=== PATIENT | female | born 1995 | race Caucasian/White ===

== ENCOUNTER 2017-11-30 19:01 | Emergency (ER) | payer MEDICAID, SELFPAY ==
[2017-11-30 19:03] VITALS: BP 123/73; PULSE 87; PULSE 93; RESP 18; TEMP 37.1; O2SAT 100; BMI 27.9
[2017-11-30 20:14] LABS: Color, Urine Yellow (Yellow); Glucose, Dipstick Normal (Normal); Ketone-Dipstick Negative (Negative); Leukocyte Esterase-Dipstick 25 /ul (Negative); Nitrite-Dipstick Negative (Negative); Occult Blood-Urine 10 /ul (Negative); Protein-Dipstick Negative (Negative); Urine Bilirubin Dipstick Negative (Negative); Urine Clarity Clear (Clear); Urine Urobilinogen Normal (Normal)
[2017-11-30 20:21] LABS: Squamous Epithelial Cells - UA 0-5 SEEN /hpf (5-10)
[2017-11-30 20:22] LABS: Mucous, Urine RARE /hpf (<or=2+)
[2017-11-30 20:23] LABS: White Blood Cells 0-5 SEEN /hpf (0-5)
[2017-11-30 20:24] LABS: Bacteria RARE /hpf (None Seen)
[2017-11-30 20:25] LABS: Red Blood Cells-Urine 0-5 SEEN /hpf (0-5)
--- NOTE | 2017-11-30 20:44 | ED.DCSUM_ITS ---
- ER Visit Summary Date of Service: 11/30/17 Chief Complaint: [] Burning abdominal pain for a few days History of Present Illness: The patient is a 22 F [] patient's had burning abdominal pain for a few days she reports a week ago she was taking quite a bit of ibuprofen for headaches close headaches of all resolved her health is now normal but she complains of burning abdominal discomfort she is able to eat and drink her bowel bladder to have been normal she denies she fact ate today without difficulty she has no history of hepatobiliary dysfunction or acid disease she is otherwise very healthy on no meds Physical Examination: [] She looks well her vital signs are within normal range head neck chest abdomen unremarkable times Apsley soft nontender rebound guarding or megaly is subjective discomfort of burning pain that is diffuse there is no right lower quadrant or any type of focal abdominal discomfort she is feeling better her back is normal upper lower extremities are normal clinically she looks well Test Results: [] Emergency Department Course and Treatment: [] Is eating and drinking well this is a burning discomfort that she had since the ibuprofen clinically she looks well Lab studies are generally unremarkable her liver enzymes are minimally elevated to AST about 60 she has no known history of the above clinically she looks well We did send off hepatitis serum screening labs I have asked her stay in a bland diet avoid nonsteroidals and follow with her doctors for further management she agrees to the above again she wants to go home Treatment Plan: [] Disposition: [] Home stable Impression: [] Abdominal pain after using ibuprofen, slight elevation of liver function tests This note was generated with [employer] dictation software. It may contain incorrect words, spelling, and punctuation that were not noted in review of the chart prior to signing ED Disposition - Plan for ED Patient: Chief Complaint: Abd Pain Instructions: ED Abdominal Pain Unkn Cause Prescriptions: Omeprazole [Prilosec] 20 mg PO DAILY #30 cap Referrals: Jayy Preston MD [Primary Care Provider] -
--- NOTE | 2017-11-30 20:46 | ED.DEP ---
ED Disposition - Plan for ED Patient: Chief Complaint: Abd Pain Instructions: ED Abdominal Pain Unkn Cause Prescriptions: Omeprazole [Prilosec] 20 mg PO DAILY #30 cap Referrals: Jayy Preston MD [Primary Care Provider] -
[2017-11-30 21:05] VITALS: RESP 18
[2017-11-30 21:49] LABS: Absolute Lymphocyte Count 3.97 X10^3/ul (0.83-4.51); Absolute Neutrophil Count 1.6 X10^3/uL (2.0-7.7); Basophil# 0.16 X10^3/uL; Basophil% 2.4 % (0-1); Eosinophil# 0.29 X10^3/uL; Eosinophils% 4.4 % (0-5); Hematocrit 39.5 % (37-47); Hemoglobin 12.7 g/dl (12.0-15.0); Lymphocyte # 3.97 X10^3/ul (4.0); Lymphocyte % 59.6 % (19-41); Mean Corp Hgb Conc 32.2 g/gl (32-36); Mean Corpuscular Hgb 29.6 pg (27.0-32.0); Mean Corpuscular Volume 92.1 fL (81-99); Mean Platelet Vol. 9.3 fl (6.2-12.0); Monocyte# 0.66 X10^3/uL; Monocyte% 9.9 % (0-10); Neutrophil # 1.56 X10^3/uL (2.7-7.7); Neutrophil % 23.4 % (47-70); Platelet Count 242 K/mm3 (150-450); RBC Distribution Width SD 42.7 fl (35.1-43.9); Red Blood Count 4.29 M/mm3 (4.2-5.4); White Blood Count 6.7 K/mm3 (4.4-11.0)
[2017-11-30 21:50] LABS: Differential Indicated SCAN CRITERIA MET; POSITIVE COUNT NO; POSITIVE DIFFERENTIAL NO; POSITIVE MORPHOLOGY YES
[2017-11-30 21:58] LABS: AST(SGOT) 60 U/L (15-37); Alanine Aminotransfer ALT/SGPT 86 U/L (13-56); Alkaline Phosphatase 89 U/L (45-117); Anion Gap 9 (5-15); BUN 13 mg/dL (7-18); BUN/Creat Ratio 19.8 RATIO (10-20); Bilirubin, Direct 0.09 mg/dL (0.00-0.30); Calcium,Total 8.5 mg/dL (8.5-10.1); Chloride 110 mmol/L (98-107); Creatinine, Serum 0.66 mg/dL (0.55-1.02); EST Glomerular Filtration Rate 118 mL/min (>60); Est Glom Filt Rate - Afr Amer 142 mL/min (>60); Estimated Creatinine Clearance 109.66 ml/min; Globulin 4.3 g/dL (2.2-4.2); Glucose 83 mg/dL (74-106); Lipase 277 U/L (73-393); Potassium 3.5 mmol/L (3.5-5.1); Protein, Total 8.3 g/dL (6.4-8.2); Sodium Level 141 mmol/L (136-145)
[2017-11-30 22:44] VITALS: BP 125/90; PULSE 98; RESP 16; O2SAT 99
--- NOTE | 2017-11-30 22:45 | ED.RN ---
REVIEWED D/C INSTRUCTIONS, FOLLOW UP CARE, AND S/S THAT WOULD WARRANT A RETURN TO THE ED WITH PT. PT VERBALIZED AN UNDERSTANDING AND DENIES FURTHER QUESTIONS FOR THIS RN. PT SKIN P/W/D, RESP EVEN AND UNLABORED, PT A&O X 3, NO DISTRESS NOTED.
[2017-12-02 06:08] LABS: HEPATITIS B SURFACE AG Negative (Negative); Hepatitis A IgM Antibody Negative (Negative); Hepatitis B Core AB IgM Negative (Negative)
[2017-12-02 13:38] LABS: Hep C Antibodies <0.1 s/co ratio (0.0-0.9)
== END 2017-11-30 22:50 | disposition home or self-care (01) ==
LOC: ED 20:36
PROVIDERS: Emergency Provider Emergency Medicine; Family Provider Family Medicine; PCP Family Medicine
DX: R10.84 Generalized abdominal pain (principal); R94.5 Abnormal results of liver function studies; Z79.899 Other long term (current) drug therapy
CPT/HCPCS: 36415; 80048; 80074; 80076; 81001; 83690; 85025; 99282; J7030; A4216; J2405

== ENCOUNTER 2018-03-14 08:05 | Emergency (ER) | payer MEDICAID, SELFPAY ==
[2018-03-14 08:06] VITALS: BP 118/70; PULSE 87; RESP 16; TEMP 36.4; O2SAT 100; BMI 28.3
--- NOTE | 2018-03-14 08:26 | ED.DCSUM_ITS ---
- ER Visit Summary Date of Service: 03/14/18 Chief Complaint: [Headache] History of Present Illness: The patient is a 22 F [presents the emergency department with a headache that started yesterday. Patient states that she woke up with it. Patient has been taking ibuprofen but she knows at times it can be hard on her stomach. Patient states that she had some mild discomfort to an lymph node on the right side anterior neck 2 days ago but that has since resolved. Patient denies sore throat. Patient denies neck pain currently. She describes her headache as diffuse and throbbing. Patient had some mild nausea yesterday but no vomiting. She denies any photophobia. Patient states several months ago she was having headaches for a couple weeks. Patient also states that she had low-grade temperature yesterday while at work it was 100.1 with a tympanic thermometer. Today at work her temperature was 99.3 and they sent her home. 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 Patient denies any urinary symptoms. No family history of brain tumors or aneurysms. Her headache is currently a 4 out of 10 and mild as she states she took ibuprofen 600 mg at 7 AM.] Physical Examination: [HEENT-PERRLA, EOMI. Cranial nerves II through XII grossly intact. TMs clear. Mucous membranes moist. No adenopathy. Cardiovascular-regular rate and rhythm without murmur or ectopy Lungs-clear to auscultation, chest wall stable without crepitus or subcu emphysema Abdomen-normoactive bowel sounds, soft, nontender, no rebound or rigidity, no peritoneal signs. Neuro [id number] and heel magaña testing within normal limits, negative Romberg, negative pronator drift, fundi benign, negative Brudzinski sign, negative Kernig's Extremities-intact ?4, normal range of motion, normal pulses, atraumatic] Test Results: [None indicated] Emergency Department Course and Treatment: [Patient refused treatment of her headache here. Also discussed about checking a urinalysis given the low-grade temperature however patient does not feel that she is having any urinary issues and does not want to proceed with this.] Patient just believe she is getting sick with possibly an upper respiratory infection. Treatment Plan: [Patient advised use Tylenol for discomfort and fever control. Patient to follow-up with her primary care physician 3-5 days. Patient to return if worsening headache, difficulty with balance or speech, high fevers, or condition should worsen in any way.] Disposition: [Discharged home in stable condition] Impression: [Headache-suspect viral syndrome] This note was generated with [employer] dictation software. It may contain incorrect words, spelling, and punctuation that were not noted in review of the chart prior to signing ED Disposition - Plan for ED Patient: Chief Complaint: Headache Referrals: Jayy Preston MD [Primary Care Provider] -
--- NOTE | 2018-03-14 08:26 | ED.DEP ---
ED Disposition - Plan for ED Patient: Chief Complaint: Headache Instructions: ED Cephalgia Unspecified Referrals: Jayy Preston MD [Primary Care Provider] - 3-5 Days
== END 2018-03-14 08:31 | disposition home or self-care (01) ==
LOC: ED 08:26
PROVIDERS: Emergency Provider Emergency Medicine
DX: R51 Headache (principal); Z79.899 Other long term (current) drug therapy
CPT/HCPCS: 99282

== ENCOUNTER 2020-06-10 07:50 | Emergency (ER) | payer MEDICAID, SELFPAY ==
[2020-06-10 07:51] VITALS: BP 127/83; PULSE 82; RESP 16; TEMP 35.8; O2SAT 100; BMI 29.5
--- NOTE | 2020-06-10 07:57 | ED.DCSUM_ITS ---
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 She presents because of chest discomfort that was first noted on Monday. She states the pain lasts up to 15 minutes. There is no precipitating, alleviating or exacerbating factors. She does report shortness of breath that rest and dyspnea on exertion. She has no history of VTE. She denies leg pain, swelling discoloration. Is a device for prevention, Mirena. There is no family history of VTE to her knowledge. She denies any constitutional symptoms of fever, chills night sweats. She denies any upper respiratory symptoms. She denies GI symptoms. Prior similar symptoms: No Recent Illness/Hospitalization: No - Past Medical History (1) No significant past medical history Status: Acute Past Medical History - Allergies and Home Meds Allergies/Adverse Reactions: Allergies No Known Allergies Allergy (Verified 06/10/20 07:51) Primary Care Physician: Su Flores DO [Primary Care Provider] - Prior records reviewed: Yes Past Medical History: None Lives: Alone Smoking Status: Never smoker Alcohol: None Drugs: None Review of Systems General: Denies: Chills, Fever, Sweats Eyes: Denies: Visual changes - bilaterally, Blurred Vision - bilaterally ENT: Denies: Rhinorrhea, Sore throat Cardiovascular: Reports: Chest pain. Denies: Palpitations, Heart racing, -, - Respiratory: Reports: Dyspnea, Dyspnea on exertion. Denies: Cough, Sputum, Orthopnea, Paroxysmal nocturnal dyspnea, -, - Gastrointestinal: Denies: Abdominal pain, Nausea, Vomiting, Diarrhea, Melena, Hematochezia Genitourinary: Denies: Dysuria, Hematuria, Frequency Musculoskeletal: Denies: Myalgias, Arthralgias, Neck pain, Back pain, Swelling, Extremity Pain Skin: Denies: Rash, Wounds Neurological: Denies: Headache, Weakness, Parasthesia, Numbness Hematologic: Denies: Easy bruising, Easy bleeding Allergy: Denies: Uticaria Physical Exam Vital Signs/Narrative: Vital Signs Temp Pulse Resp BP Pulse Ox 06/10/20 07:51 96.5 F L 82 16 127/83 H 100 Inital Vital Signs reviewed: Yes General: Well nourished, Well developed, No Acute Distress Head: Normocephalic, Atraumatic Eyes: Perrl, EOMI. Negative for: Pale conjunctiva, Scleral icterus ENT: Moist mucous membranes, No rhinorrhea Neck: Supple, Nontender, No lymphadenopathy, No JVD Cardiovascular: Regular rate, Regular rhythm, No murmurs, Normal S1, Normal S2 Respiratory: No distress, CTA bilaterally, Chest nontender Abdomen: Soft, Nontender, Nondistended, Normal bowel sounds Rectal: Deferred Back: Nontender, Normal Inspection Extremities: Nontender, No edema, - - There is no asymmetry, swelling, discoloration, leg vein distention, palpable cords or tenderness along the distribution of the deep venous system. Skin: Normal color, No rash Neurological: Alert, Oriented x3, Cranial nerves II-XII grossly intact, Normal Strength, Normal Sensation Psychological: Normal affect, Normal Mood Diagnostic/Tx/Re-eval Chest X-Ray - ED: 2 View, Read by ED Physician, Normal, Heart, Mediastinum, Bony Structures, No Acute Disease, - - 2 view chest x-ray was interpreted by me at 0841. The x-ray is normal. Impressions Chest X-Ray 06/10/20 08:35 IMPRESSION: Normal x-ray examination of the chest. Electronically Signed: Rajan Ford MD at 8:50 EDT Tel , Service support , 06/10/20 08:35 Chest PA and Lateral [RAD] Stat Laboratory Results 06/10/20 06/10/20 06/10/20 08:15 08:15 08:15 WBC 7.7 RBC 4.85 Hgb 13.8 Hct 44.7 MCV 92.2 MCH 28.5 MCHC 30.9 L RDW Std Deviation 40.9 RDW Coeff of Daniela 11.9 Plt Count 330 MPV 9.7 Immature Gran % (Auto) 0.400 Neut % (Auto) 66.0 Lymph % (Auto) 24.1 Amador % (Auto) 7.0 Eos % (Auto) 1.7 Baso % (Auto) 0.8 Absolute Neuts (auto) 5.1 Absolute Lymphs (auto) 1.85 Nucleated RBC % 0 D-Dimer Quant (PE/DVT) <= 0.27 Sodium 139 Potassium 3.8 Chloride 108 H Carbon Dioxide 26.0 Anion Gap 5 BUN 13 Creatinine 0.68 Estim Creat Clear Calc 108.26 Est GFR (MDRD) Af Amer 135 Est GFR (MDRD) Non-Af 112 BUN/Creatinine Ratio 19.2 Glucose 95 Calcium 8.9 CBC and differential are unremarkable. D-dimer is normal. Basic metabolic panel is normal. Patient was informed the cause of her chest pain is unknown. Treatment is symptomatic. - EKG Initial EKG Interpretation: Sinus Rhythm - Normal sinus rhythm with a ventricular rate of 86. GA interval is 112 ms. QRS duration 86 ms. QT interval 338 ms. Ullin is normal. There is nonspecific T wave abnormality noted. Prior: No Prior - Medical Decision Making Differential includes cardiac chest pain, noncardiac chest pain E GI, pulmonary embolus, respiratory infection. Since patient is not PERC negative a D-dimer was obtained. Chest x-ray was obtained to evaluate for pulmonary etiology. EKG to rule out ischemia or evidence of inflammation i.e. pericarditis/myocarditis. Appropriate blood work was obtained. ED Disposition - Plan for ED Patient: Disposition: Home or Assisted Living Diagnosis: Chest pain of unknown etiology, Dyspnea Instructions: ED Chest Pain NonCardiac Referrals: Su Flores DO [Primary Care Provider] - 3-5 Days if not improving Additional Instructions: Take either 4 Advil tablets every 8 hours or 2 Aleve tablets every 12 hours for the next 3 to 5 days.
--- NOTE | 2020-06-10 07:57 | EKG12_ITS ---
Test Reason : CP Blood Pressure : / mmHG Vent. Rate : 086 BPM Atrial Rate : 086 BPM P-R Int : 112 ms QRS Dur : 086 ms QT Int : 338 ms P-R-T Axes : 046 -04 023 degrees QTc Int : 404 ms Normal sinus rhythm Nonspecific T wave abnormality Abnormal ECG Confirmed by ANEESH FREITAS, JUAN DAVID ([id number]), newspaper managing editor MEY FARAH ([id number]) on 06/11/2020 9:18:46 AM Referred By: LIANNA Confirmed By:JUAN DAVID MELENDREZ MD
--- NOTE | 2020-06-10 08:35 | RAD_ITS ---
STUDY: X-RAY CHEST REASON FOR EXAM: Female, 25 years old. chest pain x 3 days, SOB TECHNIQUE: PA and lateral views of the chest. COMPARISON: None. FINDINGS: The lungs are clear and expanded. There is no demonstrated pleural abnormality. Normal size heart. Normal mediastinum and duglas. Normal visualized pulmonary arteries. Normal visualized aortic arch and descending thoracic aorta. Normal visualized thoracic spine. Normal visualized ribs, clavicles, and shoulders. There is no demonstrated abnormality of the visualized soft tissue structures of the upper abdomen. RAD/Chest PA and Lateral IMPRESSION: Normal x-ray examination of the chest. Electronically Signed: Rajan Ford MD at 8:50 EDT Tel , Service support ,
[2020-06-10 08:37] LABS: Absolute Lymphocyte Count 1.85 X10^3/uL (0.83-4.51); Absolute Neutrophil Count 5.1 X10^3/uL (2.0-7.7); Basophil# 0.06 X10^3/uL; Basophil% 0.8 % (0-1); Eosinophil# 0.13 X10^3/uL; Eosinophils% 1.7 % (0-5); Hematocrit 44.7 % (37-47); Hemoglobin 13.8 g/dL (12.0-15.0); Lymphocyte # 1.85 X10^3/ul (4.0); Lymphocyte % 24.1 % (19-41); Mean Corp Hgb Conc 30.9 g/dL (32-36); Mean Corpuscular Hgb 28.5 pg (27.0-32.0); Mean Corpuscular Volume 92.2 fL (81-99); Mean Platelet Vol. 9.7 fl (6.2-12.0); Monocyte# 0.54 X10^3/uL; NRBC Flagged by Analyzer 0 % (0-5); Neutrophil # 5.07 X10^3/uL (2.7-7.7); Platelet Count 330 K/mm3 (150-450); RBC Distribution Width CV 11.9 % (11.6-14.6); RBC Distribution Width SD 40.9 fl (35.1-43.9); Red Blood Count 4.85 M/mm3 (4.2-5.4); White Blood Count 7.7 K/mm3 (4.4-11.0)
[2020-06-10 08:48] LABS: Anion Gap 5 (5-15); BUN 13 mg/dL (7-18); BUN/Creat Ratio 19.2 RATIO (10-20); Calcium,Total 8.9 mg/dL (8.5-10.1); Chloride 108 mmol/L (98-107); Creatinine, Serum 0.68 mg/dL (0.55-1.02); EST Glomerular Filtration Rate 112 mL/min (>60); Est Glom Filt Rate - Afr Amer 135 mL/min (>60); Estimated Creatinine Clearance 108.26 ml/min; Glucose 95 mg/dL (74-106); Potassium 3.8 mmol/L (3.5-5.1); Sodium Level 139 mmol/L (136-145)
[2020-06-10 08:49] LABS: D-Dimer Quantitative (DVT/PE) <= 0.27 FEU/ug/m (0.27-0.49)
== END 2020-06-10 09:06 | disposition home or self-care (01) ==
PROVIDERS: Emergency Provider Emergency Medicine
DX: R07.9 Chest pain, unspecified (principal); R06.00 Dyspnea, unspecified
CPT/HCPCS: 71046; 80048; 85025; 85379; 93005; 99283

== ENCOUNTER 2021-02-26 12:38 | Emergency (ER) | payer MEDICAID, SELFPAY ==
[2021-02-26 12:39] VITALS: BP 136/86; PULSE 110; RESP 18; TEMP 36.6; O2SAT 94; BMI 30.1
--- NOTE | 2021-02-26 12:52 | EDS_ITS ---
HPI History of Present Illness Chief Complaint: General Illness Informant: patient Narrative Narrative: 25-year-old female states that yesterday she developed body aches headache rhinorrhea with green discharge, sore throat and cough. States that she feels warm but has not been running a temperature. She is otherwise been a very healthy individual. 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 Patient has been on amoxicillin for the past 2 days due to an infected tooth for which she is awaiting a root canal. PFSH PFSH Home Medications amoxicillin 500 mg PO Q8 02/26/21 [History Last Taken Unknown] Allergy/AdvReac Type Severity Reaction Status Date / Time No Known Allergies Allergy Verified 02/26/21 12:42 Social History (Updated 02/26/21 @ 12:[address] Jose Gutierrez, DO) Smoking Status: Never smoker substance use type: does not use ROS ROS ED Constitutional Constitutional ED: Denies chills or weight loss Eyes Eyes: Denies change in vision or diplopia ENT ENT ED: Reports rhinorrhea and sore throat; Denies ear pain Cardiovascular Cardiovascular: Denies chest pain, orthopnea, palpitations or racing heartbeat Respiratory/Chest Respiratory/Chest: Reports cough; Denies dyspnea or orthopnea Gastrointestinal Gastrointestinal: Denies abdominal pain, diarrhea, nausea or vomiting Genitourinary Genitourinary ED: Denies dysuria, hematuria or urinary frequency Musculoskeletal Musculoskeletal: Reports myalgias; Denies arthralgias Integumentary Denies abscess or rash Neurologic Neurologic: Reports headache(s); Denies weakness Psychiatric Psychiatric: Denies anxiety, depression, suicidal ideation or suicidal thoughts Endocrine Endocrinology: Denies polydipsia, polyphagia or polyuria Allergic/Immunologic Allergic/Immunologic ED: Denies mouth swelling, tongue swelling or urticaria EXAM Physical Exam Const Vital Signs: 02/26/21 12:39 02/26/21 13:18 Temperature 98 F Temperature Source Temporal Pulse Rate 110 H 90 Respiratory Rate 18 Respiratory Effort Normal Non-Labored Respiratory Pattern Normal Blood Pressure 136/86 H Blood Pressure Mean 102 Pulse Ox 94 99 Oxygen Delivery Method Room Air Room Air Positive well nourished and well developed General Appearance ED: well developed HEENT Reports normocephalic, head/scalp atraumatic and moist mucous membranes HEENT Narrative: Oropharynx does not show any erythema or tonsillar swelling. Patient has turbinate edema and rhinorrhea. Eyes PERRL and EOMs intact bilaterally Neck no lymphadenopathy, supple and no JVD Resp normal respiratory effort and clear to auscultation bilaterally Cardio regular rate, regular rhythm and no murmurs GI normal to inspection, nondistended, normoactive bowel sounds and non-tender Palpation: soft Back/Spine no CVA tenderness and normal ROM Extremity normal to inspection General Extremety ED: Negative for edema General Extremity: Negative for edema Neuro oriented x3 and CN's II-XII intact bilaterally Sensorium / Orientation: alert Motor Exam: strength 5/5 throughout Psych mental status grossly normal Mood & Affect: Negative for depressed or tearful Skin no rashes or lesions noted and no wounds MDM MDM MDM Narrative Medical decision making narrative: My interpretation of the chest x-ray is no acute process. Influenza swab was obtained and negative. At this point patient appears to have a viral URI. Would recommend supportive care return if worsening or concerns Radiography Diagnostic Testing: Radiology Impression Chest X-Ray 02/26/21 12:54 IMPRESSION: Normal x-ray examination of the chest. Electronically Signed: Emiliano Baird MD at 13:05 EDT , Service support , Discharge Plan Triage Chief Complaint: General Illness ED Provider: Jose Gutierrez Dx/Rx/DC Orders Clinical Impression: URI (upper respiratory infection) Instructions: ED URI, Viral, No Abx (Adult) Prescriptions: No Action amoxicillin 500 mg capsule 500 mg PO Q8 RF: 0 Primary Care Provider: Su Flores Referrals: Su Flores DO [Primary Care Provider] - As Needed Disposition Disposition: Home, Self Care
--- NOTE | 2021-02-26 12:54 | RAD_ITS ---
STUDY: X-RAY CHEST REASON FOR EXAM: Female, 25 years old. Cough and chest congestion for a couple of days. TECHNIQUE: Single AP portable view of the chest. COMPARISON: Comparison is made with prior study 06/10/2020. FINDINGS: The lungs are clear and expanded. There is no demonstrated pleural abnormality. Normal size heart. Normal mediastinum and duglas. Normal visualized pulmonary arteries. Normal visualized aortic arch and descending thoracic aorta. Normal visualized thoracic spine. Normal visualized ribs, clavicles, and shoulders. There is no demonstrated abnormality of the visualized soft tissue structures of the upper abdomen. RAD/Chest 1 View (Portable) IMPRESSION: Normal x-ray examination of the chest. Electronically Signed: Emiliano Baird MD at 13:05 EDT , Service support ,
[2021-02-26 13:18] VITALS: PULSE 90; O2SAT 99
== END 2021-02-26 13:48 | disposition home or self-care (01) ==
PROVIDERS: Emergency Provider Emergency Medicine
DX: J06.9 Acute upper respiratory infection, unspecified (principal)
CPT/HCPCS: 71045; 87804; 99282

== ENCOUNTER → 2021-06-14 | Outpatient (CLI) | payer MEDICAID, SELFPAY | END | disposition home or self-care (01) | LOC: LABSPEC 16:25 | PROVIDERS: Visit Provider Family Medicine | DX: Z03.818 Encounter for observation for suspected exposure to other biological agents ruled out (principal) | CPT/HCPCS: 87635; U0005; U0003 ==

== ENCOUNTER 2021-09-23 18:06 | Emergency (ER) | payer MEDICAID, SELFPAY ==
[2021-09-23 18:07] VITALS: BP 137/93; PULSE 85; RESP 16; TEMP 35.6; O2SAT 100; BMI 29.2
[2021-09-23 18:10] VITALS: BP 137/93; PULSE 87; RESP 16; TEMP 35.6; O2SAT 100
--- NOTE | 2021-09-23 18:32 | EX.ED.UPPERE ---
HPI History of Present Illness Chief Complaint: Upper Extremity Injury Narrative Narrative: 26-year-old female presenting with right arm pain. She states that some mostly on her right forearm but she does explain that she has some aching to the whole upper arm. 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 She is not sure if she actually strained it. She states that she put icy hot all over her arm and now her arm case. She took Tylenol prior to arrival and she states this did help the pain. Patient denies any difficulty moving her upper extremity. She denies any trauma to the extremity. She has no bony tenderness. She has no numbness or tingling PFSH PFSH Medical History no medical history Home Medications ibuprofen 600 mg PO Q6H PRN PRN #20 tab 09/23/21 [Rx Last Taken Unknown] Allergy/AdvReac Type Severity Reaction Status Date / Time No Known Allergies Allergy Verified 02/26/21 12:42 Social History Smoking Status: Never smoker substance use type: does not use ROS ROS ED Constitutional Constitutional ED: Denies chills, fever(s) or sweats Eyes Eyes: Denies blurry vision ENT ENT ED: Denies rhinorrhea or sore throat Cardiovascular Cardiovascular: Denies chest pain or palpitations Respiratory/Chest Respiratory/Chest: Denies cough or dyspnea Gastrointestinal Gastrointestinal: Denies abdominal pain or nausea Genitourinary Genitourinary ED: Denies dysuria or hematuria Musculoskeletal Musculoskeletal: Reports other Details: Right arm pain Integumentary Denies Abrasions or rash Neurologic Neurologic: Denies headache(s) EXAM Physical Exam Const Vital Signs: 09/23/21 18:07 09/23/21 18:10 Temperature 96.0 F L 96.0 F L Temperature Source Temporal Temporal Pulse Rate 85 87 Respiratory Rate 16 16 Blood Pressure 137/93 H 137/93 H Blood Pressure Mean 107 107 Pulse Ox 100 100 Oxygen Delivery Method Room Air Room Air Positive well nourished General Appearance ED: NAD HEENT Reports moist mucous membranes normocephalic Eyes PERRL and EOMs intact bilaterally Resp normal respiratory effort and clear to auscultation bilaterally Cardio regular rate and regular rhythm Extremity normal to inspection and full ROM Extremity Narrative: No abnormal findings in the right upper extremity. Patient has full range of motion of the right shoulder, right elbow, right wrist. She is neurovascular intact throughout. Strength 5/5. General Extremety ED: Negative for edema General Extremity: Negative for edema Neuro oriented x3, CN's II-XII intact bilaterally, moves all extremities, no focal motor deficits and no sensory deficits noted Sensorium / Orientation: alert Psych mental status grossly normal Skin Lesions: no lesions Rashes: no rashes MDM MDM MDM Narrative Medical decision making narrative: Patient presenting with right arm pain. Her physical exam is normal. She has normal strength and sensation throughout. Motor strength is 5/5 throughout. Patient does report her arm feels like it is burning after putting icy hot on this. I do think this is likely source of her burning sensation. As far his arm she might possibly have a musculoskeletal strain, however she has no bony tenderness and I do not believe she needs any imaging. I will give her 600 mg ibuprofen p.o. every 6 hours for pain. She is discharged in stable addition. Impression: 1. Right arm pain Discharge Plan Triage Chief Complaint: Upper Extremity Injury ED Provider: Yuriy Mahan Dx/Rx/DC Orders Instructions: ED Muscle Strain, Extremity Prescriptions: New ibuprofen 600 mg tablet 600 mg PO Q6H PRN PRN (Reason: pain) Qty: 20 RF: 0 Primary Care Provider: Su Flores Referrals: Su Flores DO [Primary Care Provider] - Disposition Disposition: Home, Self Care
== END 2021-09-23 18:40 | disposition home or self-care (01) ==
LOC: ED 18:31
PROVIDERS: Emergency Provider Student in an Organized Health Care Education/Training Program; Visit Provider Student in an Organized Health Care Education/Training Program
DX: M79.601 Pain in right arm (principal)
CPT/HCPCS: 99282

== ENCOUNTER 2022-04-26 22:41 | Emergency (ER) | payer OTHER, MEDICAID, SELFPAY ==
[2022-04-26 22:42] VITALS: BP 133/79; PULSE 93; RESP 16; TEMP 36.5; O2SAT 100; BMI 28.1
--- NOTE | 2022-04-26 22:59 | ED.VIS.BACK ---
HPI History of Present Illness Chief Complaint: Back Informant: patient Onset/Context/Timing Onset: Today Injury: lifting Current Severity: Mild Maximum Severity: Moderate Narrative Narrative: Patient presents secondary to back pain. 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 She points to the area just above her bra line. She states she does have increased pain when she tries to take a deep breath. She did take ibuprofen 2 hours ago. PFSH PFSH Medical History no medical history no medical history Home Medications ibuprofen 600 mg tablet 600 mg PO Q6H PRN PRN pain #20 tabs 09/23/21 [Rx Last Taken Unknown] lidocaine 5 % topical patch (Lidoderm) 1 patch topical DAILY #15 ea 04/27/22 [Rx Last Taken Unknown] naproxen 500 mg tablet (Naprosyn) 500 mg PO BID PRN pain #20 tabs 04/27/22 [Rx Last Taken Unknown] Allergy/AdvReac Type Severity Reaction Status Date / Time No Known Allergies Allergy Verified 04/26/22 22:45 Social History Smoking Status: Never smoker substance use type: does not use ROS ROS ED Constitutional Constitutional ED: Denies chills or fever(s) Eyes Eyes: Denies change in vision or discharge from eye(s) ENT ENT ED: Denies discharge from eye(s), rhinorrhea or sore throat Cardiovascular Cardiovascular: Denies chest pain or palpitations Respiratory/Chest Respiratory/Chest: Denies cough or dyspnea Gastrointestinal Gastrointestinal: Denies abdominal pain, diarrhea, nausea or vomiting Genitourinary Genitourinary ED: Denies dysuria Musculoskeletal Musculoskeletal: Reports back pain; Denies extremity pain Integumentary Denies Abrasions or rash Neurologic Neurologic: Denies headache(s) or weakness Allergic/Immunologic Allergic/Immunologic ED: Denies lip swelling or urticaria EXAM Physical Exam Const Vital Signs: 04/26/22 22:42 Temperature 97.7 F L Temperature Source Temporal Pulse Rate 93 Respiratory Rate 16 Blood Pressure 133/79 H Blood Pressure Mean 97 Pulse Ox 100 Oxygen Delivery Method Room Air Positive well nourished and well developed General Appearance ED: well developed HEENT Reports normocephalic and head/scalp atraumatic Eyes PERRL and EOMs intact bilaterally Neck supple Chest Wall inspection of chest normal and palpation of chest normal Resp normal respiratory effort and clear to auscultation bilaterally Cardio regular rate and regular rhythm GI normal to inspection, nondistended, normoactive bowel sounds Palpation: soft Back/Spine Back/Spine Narrative: Mild tender palpation of the lower thoracic paraspinal muscles bilaterally. Extremity normal to inspection Neuro oriented x3 and no sensory deficits noted Sensorium / Orientation: alert Motor Exam: strength 5/5 throughout Psych mental status grossly normal Skin no rashes or lesions noted MDM MDM MDM Narrative Medical decision making narrative: Patient sent for two-view chest x-ray. She taken ibuprofen prior to arrival. Lidoderm patch placed on her back. Radiography Diagnostic Testing: Clinical Impression(s) from Imaging Studies Chest X-Ray 04/26/22 23:03 IMPRESSION: No radiographic evidence of acute cardiopulmonary disease. Electronically Signed: Byron Aleman MD at 23:24 EDT , Treatment and Re-Evaluation Narrative: 2 view chest x-ray per my interpretation reveals no acute findings. Radiology interpretation is also reviewed. Test results discussed with the patient. She will be written for naproxen and Lidoderm patches. She will be given lifting restrictions at work. Return instructions provided. Discharge Plan Triage Chief Complaint: Back ED Provider: Adrianne Marie Dx/Rx/DC Orders Clinical Impression: Back strain Instructions: ED Back Sprain/Strain Prescriptions: New naproxen [Naprosyn] 500 mg tablet 500 mg PO BID PRN (Reason: pain) Qty: 20 0RF lidocaine [Lidoderm] 5 % adhesive patch,medicated 1 patch topical DAILY Qty: 15 0RF Rx Instructions: leave on most painful area for up to 12 hrs No Action ibuprofen 600 mg tablet 600 mg PO Q6H PRN PRN (Reason: pain) Qty: 20 0RF Stand Alone Forms: Work Status Form Primary Care Provider: Care Physician,No Primary Referrals: Corporate,Care [Group of Physicians] - 3-5 Days Care Physician,No Primary [Primary Care Provider] - Disposition Disposition: Home, Self Care
--- NOTE | 2022-04-26 23:03 | RAD_ITS ---
INDICATION: back pain EXAMINATION/TECHNIQUE: X-RAY - XR Chest 2 Views COMPARISON: Chest x-ray from 02/26/2021 FINDINGS: LINES/DEVICES: None. LUNGS: No pulmonary edema or focal airspace consolidation. No sizable pleural effusion. No pneumothorax detected. MEDIASTINUM AND CARDIOVASCULAR STRUCTURES: Heart size within normal limits. Mediastinal contours unremarkable. BONES AND SOFT TISSUES: No acute findings. Metallic nipple piercings again noted. RAD/Chest PA and Lateral IMPRESSION: No radiographic evidence of acute cardiopulmonary disease. Electronically Signed: Byron Aleman MD at 23:24 EDT ,
[2022-04-26] MEDS: Lidocaine 5% Patch 1 PATCH TOPICAL (23:14)
[2022-04-27 00:15] VITALS: BP 137/72; PULSE 72; RESP 18; O2SAT 98
== END 2022-04-27 00:17 | disposition home or self-care (01) ==
PROVIDERS: Emergency Provider Emergency Medicine; Visit Provider Emergency Medicine
DX: S39.012A Strain of muscle, fascia and tendon of lower back, initial encounter (principal); X50.0XXA Overexertion from strenuous movement or load, initial encounter; Y99.0 Civilian activity done for income or pay
CPT/HCPCS: 71046; 99282

== ENCOUNTER 2022-05-15 22:54 | Emergency (ER) | payer MEDICAID, SELFPAY ==
[2022-05-15 22:55] VITALS: BP 124/86; PULSE 103; RESP 18; TEMP 36.5; O2SAT 97; BMI 28.3
--- NOTE | 2022-05-15 23:01 | EDS_ITS ---
HPI HPI - Female History of Present Illness Chief Complaint: Complaint Narrative Narrative: 27-year-old female with urinary frequency, urgency, dysuria for last couple of days. She notes that she has some suprapubic pressure. She does not any nausea or vomiting. She has not had a fever or chills. Patient does state that she had some nausea yesterday which is resolved. She also states that she went to her sister's house and received some ciprofloxacin and has taken a dose this morning and this evening. She states that she still does have some urinary symptoms. Patient is unsure if these pills were old or new. She states that they were 500 mg tablets. She does not have any flank or back pain. PFSH PFSH Home Medications ibuprofen 600 mg tablet 600 mg PO Q6H PRN PRN pain #20 tabs 09/23/21 [Rx Last Taken Unknown] cephalexin 500 mg capsule 500 mg PO Q12 #14 caps 05/15/22 [Rx Last Taken Unknown] lactobacillus combination no.4 3 billion cell capsule (Probiotic) 1 cell PO DAILY 05/15/22 [History Last Taken Unknown] phenazopyridine 200 mg tablet (Pyridium) 200 mg PO TID PRN pain 6 doses #6 tabs 05/15/22 [Rx Last Taken Unknown] Allergy/AdvReac Type Severity Reaction Status Date / Time No Known Allergies Allergy Verified 05/15/22 22:55 Social History Smoking Status: Never smoker substance use type: does not use ROS ROS ED Constitutional Constitutional ED: Denies chills or fever(s) Eyes Eyes: Denies change in vision ENT ENT ED: Denies rhinorrhea or sore throat Cardiovascular Cardiovascular: Denies chest pain or palpitations Respiratory/Chest Respiratory/Chest: Denies cough or dyspnea Gastrointestinal Gastrointestinal: Reports other Details: Suprapubic pressure ; Denies nausea or vomiting Genitourinary Genitourinary ED: Reports dysuria, hematuria and urinary frequency Musculoskeletal Musculoskeletal: Denies arthralgias or myalgias Integumentary Denies abscess or Abrasions Neurologic Neurologic: Denies headache(s) or paresthesias Psychiatric Psychiatric: Denies anxiety or depression EXAM Physical Exam Const Vital Signs: 05/15/22 22:55 Temperature 97.7 F L Temperature Source Temporal Pulse Rate 103 H Respiratory Rate 18 Blood Pressure 124/86 H Blood Pressure Mean 98 Pulse Ox 97 Oxygen Delivery Method Room Air Positive well nourished General Appearance ED: NAD; Negative for pallor HEENT Reports moist mucous membranes Eyes PERRL and EOMs intact bilaterally Resp normal respiratory effort GI GI Narrative: Benign abdomen Back/Spine no CVA tenderness Neuro oriented x3 and CN's II-XII intact bilaterally Motor Exam: strength 5/5 throughout Skin no rashes or lesions noted General Skin Exam: Negative for jaundice or pallor MDM MDM MDM Narrative Medical decision making narrative: Patient presents with dysuria, urinary frequency. Urinalysis shows a small amount of occult blood. There is 25 leukocyte esterase. No RBCs, WBCs are seen. No contamination. No bacteria. hCG negative. Patient will be given a prescription for keflex due to ongoing symptoms. She will be given a prescription for Pyridium. Its possible she could be partially treated due to the Cipro. Since her urinalysis is shows occult blood and is not actually consistent with UTI I will cover her for referral to urology. Patient known to this. She is discharged home in stable condition. Impression: 1. Dysuria 2. Hematuria Lab Data Attestation: I reviewed the patient's lab results. Labs: Laboratory Results - last 24 hr 05/15/22 23:07 Urine Color Yellow Urine Clarity Sl. Cloudy Urine pH 6.5 Ur Specific [place] 1.015 Urine Protein 15 H Urine Glucose (UA) Normal Urine Ketones Negative Urine Occult Blood 10 H Urine Nitrite Negative Urine Bilirubin Negative Urine Urobilinogen Normal Ur Leukocyte Esterase 25 H Urine RBC 0 SEEN Urine WBC 0 SEEN Ur Squamous Epith Cells 0 SEEN Urine Bacteria 0 SEEN Urine Mucus 0 SEEN Urine Test Negative Discharge Plan Triage Chief Complaint: Complaint ED Provider: Yuriy Mahan Dx/Rx/DC Orders Instructions: ED Cystitis Female Adult Prescriptions: New cephalexin 500 mg capsule 500 mg PO Q12 Qty: 14 0RF phenazopyridine [Pyridium] 200 mg tablet 200 mg PO TID PRN (Reason: pain) Qty: 6 0RF No Action ibuprofen 600 mg tablet 600 mg PO Q6H PRN PRN (Reason: pain) Qty: 20 0RF Probiotic 3 billion cell Capsule 1 cell PO DAILY Primary Care Provider: Care Physician,No Primary Referrals: Katiuska Burkett MD [Med Staff - Active Staff] - 3-5 Days Care Physician,No Primary [Primary Care Provider] - Disposition Disposition: Home, Self Care
[2022-05-15 23:10] LABS: Bacteria 0 SEEN /hpf (None Seen); Mucous, Urine 0 SEEN /hpf (<or=2+); Red Blood Cells-Urine 0 SEEN /hpf (0-5); Squamous Epithelial Cells - UA 0 SEEN /hpf (5-10); White Blood Cells 0 SEEN /hpf (0-5)
[2022-05-15 23:12] LABS: Color, Urine Yellow (Yellow); Glucose, Dipstick Normal (Normal); Ketone-Dipstick Negative (Negative); Leukocyte Esterase-Dipstick 25 /ul (Negative); Nitrite-Dipstick Negative (Negative); Occult Blood-Urine 10 /ul (Negative); Protein-Dipstick 15 mg/dl (Negative); Specific Gravity, Urine 1.015 (1.002-1.030); Urine Bilirubin Dipstick Negative (Negative); Urine Clarity Sl. Cloudy (Clear); Urine Urobilinogen Normal (Normal); Urine pH 6.5 (5.0 - 8.0)
[2022-05-15 23:17] LABS: Internal QC Validated? YES +Cl - CLEAR BKGD; Pregnancy, Urine Negative Negative
[2022-05-15] MEDS: Cephalexin 250 MG Capsule 500 MG PO (23:34)
[2022-05-15] MEDS: Phenazopyridine 95 MG Tablet 190 MG PO (23:34)
== END 2022-05-15 23:37 | disposition home or self-care (01) ==
PROVIDERS: Emergency Provider Student in an Organized Health Care Education/Training Program; Visit Provider Student in an Organized Health Care Education/Training Program
DX: R30.0 Dysuria (principal); R31.9 Hematuria, unspecified; R39.15 Urgency of urination; R35.0 Frequency of micturition
CPT/HCPCS: 81001; 81025; 87086; 87088; 99283

== ENCOUNTER → 2024-10-09 | Outpatient (CLI) | payer MEDICAID, SELFPAY | END | disposition home or self-care (01) | LOC: LABSPEC 16:27 | PROVIDERS: PCP Nurse Practitioner Family; Visit Provider Physician Assistant | DX: R30.0 Dysuria (principal) | CPT/HCPCS: 87086 ==

== ENCOUNTER → 2024-11-06 | Outpatient (CLI) | payer MEDICAID, SELFPAY ==
--- NOTE | 2024-11-06 10:58 | STRESSREP ---
Stress Test Report Date: 11/06/2024 Procedure: Exercise tolerance test Indications: Chest pain Consent: Per the patient Procedure: The patient exercised on a Pancho protocol for 9 minutes achieving a peak heart rate of 181 bpm (95% predicted maximal heart rate) with a peak blood pressure 160/80 mmHg and a peak MET capacity of approximately 10.4 MET's. The baseline ECG demonstrated normal sinus rhythm. The peak exercise ECG showed sinus tachycardia with no ischemic changes. Single PVC noted during exercise. The functional capacity was considered excellent. The patient had no complaints of chest discomfort during exercise or recovery. The examination was discontinued secondary to target heart rate being achieved and dyspnea. Impression: 1. Technically adequate (percent predicted maximal heart rate greater than 85%) exercise tolerance test 2. Peak exercise ECG with no ischemic changes 3. Single PVC noted during exercise This note was generated with [facility] dictation software. It may contain incorrect words, spelling, and punctuation that were not noted in checking the note before signing.
== END | disposition home or self-care (01) ==
LOC: CVS 09:48
PROVIDERS: PCP Nurse Practitioner Family; Referring Provider Physician Assistant Medical; Visit Provider Physician Assistant Medical
DX: R07.9 Chest pain, unspecified (principal)
CPT/HCPCS: 93017

== ENCOUNTER 2025-05-26 11:34 | Emergency (ER) | payer MEDICAID, SELFPAY ==
[2025-05-26 11:35] VITALS: BP 159/96; PULSE 117; RESP 16; TEMP 36.9; O2SAT 100; BMI 28.3
[2025-05-26 12:12] LABS: Hematocrit 43.5 % (37-47); Hemoglobin 14.2 g/dL (12.0-15.0); Immature Granulocytes Count 0.020 X10^3/uL (0.0-0.0); Mean Corp Hgb Conc 32.6 g/dL (32-36); Mean Corpuscular Volume 89.9 fL (81-99); Mean Platelet Vol. 9.4 fl (6.2-12.0); NRBC Flagged by Analyzer 0 % (0-5); Platelet Count 422 K/mm3 (150-450); RBC Distribution Width CV 11.9 % (11.6-14.6); RBC Distribution Width SD 39.1 fl (35.1-43.9); Red Blood Count 4.84 M/mm3 (4.2-5.4); White Blood Count 8.7 K/mm3 (4.4-11.0)
[2025-05-26 12:52] LABS: Internal QC Validated? YES +Cl - CLEAR BKGD; Pregnancy, Serum, hCG Quali. NEGATIVE Negative
[2025-05-26 12:53] LABS: Lipase 72 U/L (13-75); Record Kit Lot#, Serum Preg. 0000980607
[2025-05-26 12:56] LABS: AST(SGOT) 51 U/L (<=31); Alanine Aminotransfer ALT/SGPT 82 U/L (<=34); Albumin, Serum 4.9 g/dL (3.5-5.0); Alkaline Phosphatase 72 U/L (35-104); Anion Gap 12 (5-15); BUN 10 mg/dL (4-19); BUN/Creat Ratio 14.4 RATIO (10-20); Calcium,Total 9.9 mg/dL (7.6-11.0); Carbon Dioxide 26.1 mmol/L (21.0-32.0); Chloride 103 mmol/L (98-108); Estimated Creatinine Clearance 115.37 ml/min (50-250); Globulin 3.3 g/dL (2.2-4.2); Glucose 121 mg/dL (70-99); Potassium 4.6 mmol/L (3.3-5.1)
--- NOTE | 2025-05-26 13:25 | US_ITS ---
PROCEDURE: ABDOMEN LIMITED 05/26/2025 REASON FOR EXAM: PAIN TECHNIQUE: Procedure Code: USABDL Modality: US Procedure: ABDOMEN LIMITED FINDINGS: LIVER: Measures 17.8 cm in length. Increased echogenicity. Hepatic parenchyma demonstrates normal homogeneous echotexture with a small hypoechoic area adjacent to the gallbladder measuring 0.9 x 0.8 x 0.6 cm, likely representing focal fatty sparing. Portal venous flow is hepatopetal. No focal hepatic mass or intrahepatic biliary dilatation identified. BILIARY SYSTEM: Gallbladder measures 5.3 cm in length with a normal wall thickness of 2.0 mm. No gallstones, sludge, or pericholecystic fluid. Negative sonographic Polanco's sign. Common bile duct measures 2.9 mm in diameter. PANCREAS: Visualized portions are unremarkable. No ductal dilatation. RIGHT KIDNEY: Measures 12.4 x 5.1 x 4.4 cm. Normal cortical thickness and echogenicity. No hydronephrosis, mass, or calculus identified. US/Abdomen Limited IMPRESSION: Hepatic steatosis with a focal fatty sparing. Reading Location: [id number]
[2025-05-26] MEDS: Famotidine 200 MG/20 ML MDV 20 MG in 0.9% Normal Saline (Pres. free 8 ML 300 MG IV (13:40)
--- NOTE | 2025-05-26 13:47 | EDS_ITS ---
HPI History of Present Illness Chief Complaint: Abd Pain Narrative Narrative: Chief complaint and HPI: 30-year-old female with no significant past medical history presents for evaluation of epigastric abdominal pain. Patient states for the past several days she has been having epigastric abdominal pain. States she does eat a lot of spicy foods. She denies acid reflux. Describes it as dull and not burning. Associated symptoms nonbloody diarrhea. She denies any fever, chills, nausea, vomiting, dysuria. States she does not believe herself to be given she has an IUD. Review of systems: See HPI Medications: As listed on the chart Allergies: As listed on the chart PFSH: Per chart Vital signs: As listed on the chart. Reviewed. Physical exam: Gen: A&O x3, NAD Head: Normocephalic, atraumatic Eyes: No sclera icterus, conjunctiva clear ENT: Moist mucous membranes Neck: Trachea midline CV: RRR, no murmurs Resp: Lungs CTA BL, no w/r/c GI: Abd soft, non-distended, mild tenderness to palpation in the epigastrium and right upper quadrant, no r/r/g Musc: Full ROM, no deformity Skin: Warm, dry Neuro: Alert, oriented, grossly intact, sensation intact Psych: Cooperative, appropriate mood and affect [facility] Medical History Humerus fracture Physical exam, pre-employment induced hypertension SOB (shortness of breath) Tachycardia Home Medications ?Medication ?Instructions ?Recorded ?Last Taken ?Type [id number] 250 1 tab PO Q6H PRN pa in 05/26/25 05/24/25 History mg-250 mg-65 mg tablet (Excedrin Extra Strength) Allergy/AdvReac Type Severity Reaction Status Date / Time No Known Allergies Allergy Verified 05/26/25 11:35 Family History Sister Asthma Surgical History History of surgery History of tonsillectomy and adenoidectomy History of tooth extraction Social History Smoking Status: Never smoker substance use type: does not use EXAM Physical Exam Const Vital Signs: 05/26/25 11:35 05/26/25 15:05 Temperature 98.4 F 98.1 F Temperature Source Oral Oral Pulse Rate 117 H 105 H Respiratory Rate 16 14 Blood Pressure 159/96 H 128/86 H Blood Pressure Mean 117 100 Pulse Ox 100 99 Oxygen Delivery Method Room Air Room Air MDM MDM MDM Narrative Medical decision making narrative: 30-year-old female with no significant past medical history presents for evaluation of epigastric abdominal pain. Patient states for the past several days she has been having epigastric abdominal pain. States she does eat a lot of spicy foods. She denies acid reflux. Describes it as dull and not burning. Associated symptoms nonbloody diarrhea. Differential diagnosis includes but not limited to gastritis, GERD, cholelithiasis, cholecystitis, pancreatitis. Patient had protocol abdominal labs ordered in triage, labs resulted by the time I saw the patient. CBC without leukocytosis or anemia. CMP shows mild transaminitis with an AST of 51 and an ALT of 82. Patient had mild transaminitis on previous labs in 2018. No hyperbilirubinemia. Lipase unremarkable. Serum negative. Given the mild elevation and transaminitis ultrasound of the gallbladder ordered. Pepcid ordered. UA negative for UTI. Gallbladder ultrasound shows hepatic steatosis with a focal fatty sparing. No cholecystitis or cholelithiasis. Pancreas unremarkable. At this point in time, no clear etiology for patient's epigastric abdominal pain. On reevaluation, patient's pain has improved with Pepcid. Her symptoms may be secondary to gastritis/GERD. Will place her on a week course of Pepcid. Recommend refraining from spicy foods. Follow-up with primary care physician. Return back to ED symptoms change or worsen. She confirmed understand the plan. Patient will discharge home. Impression: 1. Epigastric abdominal pain 2. Chronic mild transaminitis Lab Data Labs: Laboratory Results - last 24 hr 05/26/25 05/26/25 12:00 15:05 WBC 8.7 RBC 4.84 Hgb 14.2 Hct 43.5 MCV 89.9 MCH 29.3 MCHC 32.6 RDW Std Deviation 39.1 RDW Coeff of Daniela 11.9 Plt Count 422 MPV 9.4 Immature Gran % (Auto) 0.200 Neut % (Auto) 71.4 H Lymph % (Auto) 20.3 [place] % (Auto) 6.5 Eos % (Auto) 0.8 Baso % (Auto) 0.8 Absolute Neuts (auto) 6.2 Absolute Lymphs (auto) 1.76 Nucleated RBC % 0 Sodium 140 Potassium 4.6 Chloride 103 Carbon Dioxide 26.1 Anion Gap 12 BUN 10 Creatinine 0.70 Estim Creat Clear Calc 115.37 Est GFR (MDRD) Non-Af 118 BUN/Creatinine Ratio 14.4 Glucose 121 H Calcium 9.9 Total Bilirubin 0.44 AST 51 H ALT 82 H Alkaline Phosphatase 72 Total Protein 8.2 Albumin 4.9 Globulin 3.3 Albumin/Globulin Ratio 1.5 Lipase 72 Serum , Qual NEGATIVE Urine Color Yellow Urine Clarity Clear Urine pH 8.0 Ur Specific [place] 1.010 Urine Protein Negative Urine Glucose (UA) Normal Urine Ketones Negative Urine Occult Blood Negative Urine Nitrite Negative Urine Bilirubin Negative Urine Urobilinogen Normal Ur Leukocyte Esterase Negative Urine RBC 0 SEEN Urine WBC 0-5 SEEN Ur Squamous Epith Cells 5-10 SEEN Urine Bacteria 0 SEEN Urine Mucus 0 SEEN Radiography Diagnostic Testing: Clinical Impression(s) from Imaging Studies Abdomen Ultrasound 05/26/25 13:25 IMPRESSION: Hepatic steatosis with a focal fatty sparing. Reading Location: [address] Discharge Plan Triage Chief Complaint: Abd Pain ED Provider: Eleazar Hull Dx/Rx/DC Orders Prescriptions: No Action [id number] [Excedrin Extra Strength] 250-250-65 mg tablet 1 tab PO Q6H PRN (Reason: pain) Primary Care Provider: Constance Mast NP Referrals: Constance Mast NP, [employer] [Primary Care Provider, Family Practice] Print Language: Yakut
[2025-05-26 15:05] VITALS: BP 128/86; PULSE 105; RESP 14; TEMP 36.7; O2SAT 99
[2025-05-26 15:19] LABS: Mucous, Urine 0 SEEN /hpf (<or=2+); Red Blood Cells-Urine 0 SEEN /hpf (0-5)
[2025-05-26 15:23] LABS: Color, Urine Yellow (Yellow); Glucose, Dipstick Normal (Normal); Ketone-Dipstick Negative (Negative); Leukocyte Esterase-Dipstick Negative /ul (Negative); Nitrite-Dipstick Negative (Negative); Occult Blood-Urine Negative /ul (Negative); Protein-Dipstick Negative (Negative); Specific Gravity, Urine 1.010 (1.002-1.030); Urine Bilirubin Dipstick Negative (Negative)
[2025-05-26 15:40] LABS: Squamous Epithelial Cells - UA 5-10 SEEN /hpf (5-10)
[2025-05-26 15:54] VITALS: BP 136/76; PULSE 105; RESP 14; TEMP 36.7; O2SAT 99
== END 2025-05-26 15:58 | disposition home or self-care (01) ==
PROVIDERS: Emergency Provider Surgery; PCP Nurse Practitioner Family; Visit Provider Surgery
DX: R10.13 Epigastric pain (principal); K76.0 Fatty (change of) liver, not elsewhere classified; R74.01 Elevation of levels of liver transaminase levels
CPT/HCPCS: 76705; 80053; 81001; 83690; 84703; 85025; 96365; 99283; A4216